=== PATIENT | female | born 1970 | race Caucasian/White ===

== ENCOUNTER 2019-04-04 21:31 | Emergency (ER) | payer MEDICAID | END 2019-04-05 20:23 ==

== ENCOUNTER 2019-04-16 12:37 | Observation (INO) | payer MEDICAID | END 2019-04-17 16:11 | disposition home or self-care (01) | LOC: F3N 15:51 ==

== ENCOUNTER 2019-04-21 11:07 | Emergency (ER) | payer MEDICAID | END 2019-04-21 12:06 | disposition home or self-care (01) ==

== ENCOUNTER 2019-05-03 15:28 | Inpatient (IN) | payer OTHER, MEDICAID | END 2019-05-07 17:22 | disposition still patient (30) | LOC: BBEH 20:40 ==